=== PATIENT | female | born 1975 | race Caucasian/White ===

== ENCOUNTER 2017-03-27 13:29 | Emergency (ER) | payer BC, OTHER ==
[2017-03-27 13:45] VITALS: BP 138/92
[2017-03-27] MEDS ORDERED: KETOROLAC TROMETHAMINE 30 MG/ML VIAL IM ONE (13:58)
--- NOTE | 2017-03-27 14:04 | ERNOTE ---
Medical Problem HPI - Narrative Date of Service: 03/27/17 - General Chief Complaint: General Assessment Time Seen by Provider: 03/27/17 13:49 Source: patient Exam Limitations: no limitations - patient's immunizations include tetanus in 2014. - Immun/Allergies/Home Medications Immunizations: IMMUNIZATION HX Immunizations Up to Date Yes Allergies/Adverse Reactions: Allergies No Known Allergies Allergy (Verified 03/27/17 13:45) Home Medications: HOME MEDICATIONS Alprazolam [Xanax] 0.25 mg PO PRN 03/27/17 [Last Taken Unknown] Levothyroxine Sodium [Synthroid] 150 mcg PO DAILY 03/27/17 [Last Taken Unknown] Meloxicam [Mobic] 15 mg PO DAILY 03/27/17 [Last Taken Unknown] Sertraline HCl 25 mg PO DAILY 03/27/17 [Last Taken Unknown] - History of Present History Narrative: This is a 42-year-old female who comes to the emergency department complaining of cramps in her left calf bilateral neck bilateral jaw. She says that the pains when going on since Thursday. Approximately one week ago she stepped on nail. This was in the low love her left foot. Shortly thereafter she started developing the cramps in her calf on that side as well as the cramps in her neck and jaws. The patient's tetanus is up-to-date with her last immunization in 2014. The patient does have a history of anxiety for which she uses an SSRI as well as alprazolam. The patient states that her pain is a 7 out of 10 at the moment as she is sitting comfortably in the bed in the room with a normal heart rate and blood pressure, and says that it becomes an 8 or 9 out of 10 at its very worst. The patient says she has had some nasal congestion and perhaps a bit of a runny nose. No fever or chills. No cough. No redness of the skin in the area of the puncture wound. No other somatic complaints Timing: getting worse Severity: moderate Modifying Factors - (Improves): Present: other - nothing Modifying Factors - (Worsens): Present: other - nothing Review of Systems - Narrative Narrative: Please see HPI. All relevant positives are addressed there. - Review of Systems Constitutional: Absent: fever, chills, fatigue, malaise, weight loss EYE: Present: no symptoms reported ENT: Present: no symptoms reported, other - jaw muscles spasms or cramps Respiratory: Present: no symptoms reported Cardiology: Present: no symptoms reported Gastrointestinal/Abdominal: Present: nausea Genitourinary: Present: no symptoms reported Musculoskeletal: Present: muscle pain, neck pain Skin: Present: no symptoms reported Neurological: Present: no symptoms reported Endocrine: Present: no symptoms reported Hematologic/Lymphatic: Present: no symptoms reported Psych: Present: no symptoms reported All Other Systems: All systems neg except as marked - Patient's Past Medical History Patient History - Medical: No pertinent hx Patient History - Cardiac/Respiratory: No pertinent hx Patient History - Cancer: No Hx of Cancer Patient History - Surgical Procedures: Tubal Ligation Patient History - Other: None LMP (Calendar): 03/05/17 - Social History Living Situations: spouse Psych History: No pertinent hx Smoking Status: Never smoker Alcohol Use: rarely Drug Use: none - Immunizations Immunizations Up to Date: Yes Physical Exam - Physical Exam Narrative: This is a very pleasant well-developed well-nourished female sitting in bed in no apparent distress. General Appearance: Present: wd/wn, alert, no apparent distress Eye Exam: Normal inspection: bilateral, PERRL: bilateral Ears, Nose, Throat: Present: normal ENT inspection, other - the patient does not have any trismus of the jaw. Absent: sinus pain/drainage, pharyngeal erythema Neck: Present: normal inspection, other - patient has some mild paraspinal spasms and tenderness to palpation. Right much greater than left Respiratory: Present: no respiratory distress, normal breath sounds, no accessory muscle use, chest nontender Cardiovascular/Chest: Present: regular rate, rhythm, no murmur Gastrointestinal/Abdominal: Present: normal bowel sounds, nontender, nondistended, soft Rectal Exam: Present: deferred Back Exam: Present: normal inspection, normal range of motion, no CVA tenderness Extremity Exam: Present: normal inspection, non-tender, normal range of motion, no edema, other Neurological Exam: Present: alert, oriented, normal mood/affect, no motor/ sensory deficits Skin Exam: Present: normal color, warm/dry, other - no rash. No erythema. No purulent drainage. No cellulitic changes. Lymphatic Exam: Present: no adenopathy ED Progress - Results and Orders Patient's Lab Results:: I have reviewed the patient's lab results. - Vital Signs Patient's Vital Signs:: I have reviewed the patient's vital signs. Vital Signs: Vital Signs 03/27/17 13:38 Temperature 36.5 C Pulse Rate 97 Respiratory 14 Rate Blood Pressure 138/92 O2 Sat by Pulse 100 Oximetry - Progress/Reassessment Chief Complaint: General Assessment Progress:: Improved Plan - Plan Plan: Patient is counseled to watch out for signs of worsening infection. Certainly if she develops severe muscle spasms, especially in the jaw, she will return to the ER. I think that tetanus in someone who is vaccinated with tetanus shot 2 years ago as virtually 0% chance. Nevertheless I have counseled her about the possible signs and when to return Departure - Departure Clinical Impression: Myalgia Disposition: Home self-care Condition: Stable Instructions: Muscle Pain, Adult Referrals: Anali Thomson FNP [Primary Care Provider] -
[2017-03-27] MEDS ORDERED: KETOROLAC TROMETHAMINE 30 MG/ML VIAL ONE (14:09)
[2017-03-27 14:10] LABS: Hematocrit 42.3 % (37.0-47.0); Hemoglobin 14.2 gm/dL (12.5-16.0); Mean Cell Volume 87.6 fl (78-100); Mean Corpuscular Hemoglobin 29.4 pg (27-31); Mean Corpuscular Hgb Conc 33.6 g/dl (32-36); Neutrophil % 74.8 % (42-75.0); Platelet Count 291 K/mm3 (150-450); Red Blood Count 4.83 M/mm3 (4.2-5.4); Red Cell Distribution Width 14.3 % (11.5-14.0); White Blood Count 8.1 K/mm3 (4.0-10.5)
[2017-03-27 14:17] LABS: Anion Gap 13.3 mmol/L (6.8-13.8); BUN/Creatinine Ratio 27.1 (9.0-21.6); Blood Urea Nitrogen 23 mg/dL (3-23); Calcium * 8.6 mg/dL (7.9-10.9); Carbon Dioxide 24.6 mmol/L (24-32.6); Chloride 104 mmol/L (97-106); Glucose * 99 mg/dL (70-110); Potassium 3.9 mmol/L (3.4-4.6); Sodium 138 mmol/L (132-142)
[2017-03-27 14:38] LABS: Urine Appearance Clear; Urine Bilirubin Negative (NEGATIVE); Urine Blood 5 /ul (NEGATIVE); Urine Color Yellow; Urine Ketone Negative (NEGATIVE)
[2017-03-27 14:39] LABS: Urine Bacteria None Seen; Urine Nitrite Negative (NEGATIVE); Urine Protein Negative (NEGATIVE); Urine RBC 0-5 /hpf (0-5); Urine Specific Gravity 1.025 SP.GR. (1.005-1.010); Urine Urobilinogen Normal (NORMAL); Urine WBC None Seen /hpf (0-5)
== END 2017-03-27 15:35 | disposition home or self-care (01) ==
LOC: ER 13:29
DX: M79.1 Myalgia (principal)